=== PATIENT | male | born 1985 | race African-American/Black ===

== ENCOUNTER 2023-09-27 15:31 | Inpatient (IN) ==
--- NOTE | 2023-09-27 15:45 | Emergency Department Note ---
Impression & Plan Seizure, Non compliance w medication regimen, Suicidal ideation ED Provider Note NAME: FREDERIC [id number] MELODY AGE: 38 SEX: M : 1985 ARRIVES VIA: Ambulance INFORMANT: Patient ED PROVIDER(S): Marvin Olivas MD CHIEF COMPLAINT: Recurrent seizures, non-compliance, referred. PLAN: Disposition: Admit MEDICAL DECISION MAKING: The patient is a 38-year-old gentleman, present inmate at [facility] who presents to the emergency department via EMS for evaluation of recurrent seizure episodes which began 1 PM today and continued several times despite receiving repeat doses of Versed. The patient's symptoms occur in the setting of admittedly being noncompliant with his medications which at this time he admits has been ongoing for a month or so where he would except his medications at his facility and put them in his mouth but would not swallow them. Per the [facility] the patient had overtly refuses medication since Wednesday. The details of the patient's seizure history are unclear though the patient reports he had seizures ever since he was a child but was not on antiseizure medications until he was in the nursing home system. He is unaware of having any EEG assessment to confirm his diagnosis. Per discussion with [facility] provider who reviewed records patient's last breakthrough seizure episodes were 2021 when he was at a facility in [facility]. Per her review of records the patient had refused EEG at that time. Patient had been on Lamictal and Depakote but upon teleneurology evaluation since 2021 he was taken off of Depakote due to his history of hep C and his Lamictal was increased from 100 mg twice daily to 150 mg twice daily. The patient reports that he has been noncompliant due to ongoing depression relating unfortunate news regarding family members in terms of their health and most recently the suicide of his 16-year-old son. He reports at times he has thoughts hoping that his noncompliance with his medications will lead to his . However he reports that he has other ideas of how he would carry this out that would be "full prove" and no one would be able to stop him. On my evaluation patient is no acute distress, afebrile with stable vital signs. He is somnolent appearing but awake and alert answering questions. He appears clinically dry. There is no evidence of tongue biting. He is moving all extremities equally without focal deficits. EKG without overt acute ischemia. WBC, H/H and platelets within normal limits. Chemistry without metabolic acidosis. Electrolytes and LFTs unremarkable. CPK is marginally above upper limit of normal is nonspecific. TSH is low at 0.014 however free T4 within normal limits. Prolactin is marginally above upper limit of normal is nonspecific. UA without evidence of infection. COVID-19 RNA, SADE test negative. CT of the head was negative acute abnormalities. Due to the patient's recurrent episodes he was given initial 1 g dose of IV Keppra but due to several episodes here in the emergency department a second gram for a total of 2 g Keppra load was provided. Of note, the character of the patient's episodes Emergency Department were generalized tonic-clonic episodes but after which the patient would be awake and alert and answering questions. Patient's heart rate and blood pressure did not demonstrate any significant changes during and after these episodes. Given the recurrence of the patient's seizure-like episodes patient was for to hospital service for further management. Case was [facility] Susie Adair[facility] will [facility] the patient for [facility]. Triage Nursing notes reviewed and agree them. Prior/external medical records reviewed Vital Signs: reviewed Differential diagnosis: Epilepsy, infection, hypoglycemia, electrolyte abnormalities, cardiac sources, intracerebral event, trauma, toxicologic, neurologic, syncope, as well as other pathologies. ER treatment provided: See below. Diagnostics interpreted by me: ECG: NSR, 70 bpm, no ectopy, no overt ST elevation or depression. Cardiac Monitoring: An order for continuous cardiac monitoring was placed and demonstrated NSR, 70 bpm, no ectopy. Laboratory studies: See below Imaging studies: See below Consultation(s): Case was discussed with Susie Adair, with Susie Cruz who will evaluate the patient for admission. HPI: The patient is a 38-year-old gentleman, present inmate at [facility] who presents to the emergency department via EMS for evaluation of recurrent seizure episodes which began 1 PM today and continued several times despite receiving repeat doses of Versed. The patient's symptoms occur in the setting of admittedly being noncompliant with his medications which at this time he admits has been ongoing for a month or so where he would except his medications at his facility and put them in his mouth but would not swallow them. Per the [facility] the patient had overtly refuses medication since Wednesday. The details of the patient's seizure history are unclear though the patient reports he had seizures ever since he was a child but was not on antiseizure medications until he was in the nursing home system. He is unaware of having any EEG assessment to confirm his diagnosis. Per discussion with [facility] provider who reviewed records patient's last breakthrough seizure episodes were 2021 when he was at a facility in [facility]. Per her review of records the patient had refused EEG at that time. Patient had been on Lamictal and Depakote but upon teleneurology evaluation since 2021 he was taken off of Depakote due to his history of hep C and his Lamictal was increased from 100 mg twice daily to 150 mg twice daily. The patient reports that he has been noncompliant due to ongoing depression relating unfortunate news regarding family members in terms of their health and most recently the suicide of his 16-year-old son. He reports at times he has thoughts hoping that his noncompliance with his medications will lead to his . However he reports that he has other ideas of how he would carry this out that would be "full prove" and no one would be able to stop him. ROS: See above HPI for pertinent positives & negatives. A total of 10 systems reviewed and were otherwise negative. VITALS:See Below PHYSICAL EXAMINATION: GENERAL: Somnolent-appearing but awake and alert, in no distress HENT: Normocephalic, atraumatic. Oropharynx with dry mucous membranes and otherwise unremarkable. EYES: Normal conjunctiva. Sclera non-icteric. EOMI. No nystamgus. PEARRL. NECK: Supple. No nuchal rigidity. FROM. No JVD. RESPIRATORY: Clear to auscultation. CARDIAC: Regular rate, normal rhythm. Extremities warm and well perfused. Pulses equal. ABDOMEN: Soft, non-distended. No tenderness to palpation. No rebound or guarding. No masses. MUSCULOSKELETAL: Chest examination reveals no tenderness. The back is symmetrical on inspection without obvious abnormality. There is no CVA tenderness to palpation. No joint edema. LOWER EXTREMITIES: Calves are equal size bilaterally and non-tender. No edema. No discoloration. NEURO: No focal sensory or motor deficits noted. 5/5 strength and SILT x 4 extremities. SKIN: No rash or jaundice noted. 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 Beliefs That Will Affect Care: None Current Living Situation Comment: Half-Way Other Information That Helps Us Care for You: No Feels Safe at Home: Yes Safety Concerns: Feels Safe At This Time Assistive Devices: None Home Meds Home Medications Medication Instructions Recorded Confirmed amlodipine 2.5 mg tablet (Norvasc) 2.5 mg PO DAILY 09/27/23 09/27/23 lamotrigine 100 mg tablet 100 mg PO BID 09/27/23 09/27/23 (Lamictal) lamotrigine 25 mg tablet (Lamictal) 50 mg PO BID 09/27/23 09/27/23 mirtazapine 15 mg tablet (Remeron) 15 mg PO QPM 09/27/23 09/27/23 sertraline 50 mg tablet (Zoloft) 50 mg PO DAILY 09/27/23 09/27/23 Results & Data (ED) Vital Signs Vital Signs - 24 hr 09/27/23 15:42 09/27/23 16:00 09/27/23 16:07 Temperature 36.8 C Temperature Source Oral Pulse Rate 85 76 Pulse Rate [Apical] 72 Pulse Rhythm Respiratory Rate 22 18 Respiratory Effort / Characteristics Non-Labored Non-Labored Respiratory Depth Normal Normal Blood Pressure 116/62 Blood Pressure [Right Arm] 113/67 Blood Pressure Mean 80 Blood Pressure Mean [Right Arm] 82 Pulse Oximetry 88 L 97 Oxygen Delivery Method Room Air Room Air Sepsis Recent Fever Within 48 Hours No Sepsis New/Unexplained Change in Mental Status N/A Sepsis Action Taken by Nursing No Action Required 09/27/23 16:07 09/27/23 16:07 09/27/23 16:07 Temperature Temperature Source Pulse Rate 87 Pulse Rate [Apical] 82 Pulse Rhythm Regular Respiratory Rate 20 Respiratory Effort / Characteristics Respiratory Depth Blood Pressure Blood Pressure [Right Arm] Blood Pressure Mean Blood Pressure Mean [Right Arm] Pulse Oximetry 96 Oxygen Delivery Method Room Air Room Air Sepsis Recent Fever Within 48 Hours Sepsis New/Unexplained Change in Mental Status Sepsis Action Taken by Nursing 09/27/23 16:15 09/27/23 16:22 Temperature Temperature Source Pulse Rate Pulse Rate [Apical] Pulse Rhythm Respiratory Rate Respiratory Effort / Characteristics Respiratory Depth Blood Pressure 110/51 L Blood Pressure [Right Arm] 103/79 Blood Pressure Mean 62 Blood Pressure Mean [Right Arm] 87 Pulse Oximetry 100 Oxygen Delivery Method Non-rebreather Sepsis Recent Fever Within 48 Hours Sepsis New/Unexplained Change in Mental Status Sepsis Action Taken by Nursing Laboratory Data Attestation: I reviewed the patient's lab results. 09/27/23 15:57 09/27/23 15:57 Lab Results 09/27/23 Range/Units 15:57 WBC 7.33 (4.8-10.8) K/ul RBC 5.08 (4.70-6.10) M/uL Hgb 15.2 (14.0-18.0) g/dl Hct 43.8 (42.0-52.0) % MCV 86.2 (80.0-100.0) fL MCH 29.9 (25.0-34.0) pg MCHC 34.7 (32.0-36.0) g/dL RDW Std Deviation 36.0 L (36.4-46.3) fL RDW Coeff of Leobardo 11.4 L (11.5-14.5) % Plt Count 226 (130-400) K/uL MPV 10.6 (9.4-12.4) fL Immature Gran % (Auto) 0.3 % Neut % (Auto) 65.1 % Lymph % (Auto) 22.9 % [place] % (Auto) 10.8 % Eos % (Auto) 0.5 % Baso % (Auto) 0.4 % Neut # (Auto) 4.77 (1.40-6.50) K/uL Lymph # (Auto) 1.68 (1.20-3.40) K/uL [place] # (Auto) 0.79 H (0.11-0.59) K/uL Eos # (Auto) 0.04 (0.00-0.50) K/uL Baso # (Auto) 0.03 (0.00-0.20) K/uL Immature Gran # (Auto) 0.02 (0.01-0.20) K/uL PT 10.6 (9.0-12.0) Seconds INR 1.0 (0.9-1.1) Sodium 138 (136-145) mmol/L Potassium 4.0 (3.5-5.1) mmol/L Chloride 105 (98-107) mmol/L Carbon Dioxide 28 (21-32) mmol/L Anion Gap 5 (3-11) BUN 16 (6-23) mg/dl Creatinine 0.87 (0.6-1.4) mg/dl Est Cr Clr Drug Dosing Not Reportable Est GFR ( Amer) 128.7 ml/min Est GFR (Non-Af Amer) 111.0 ml/min BUN/Creatinine Ratio 18.4 (10-20) Glucose 115 H (70-99(Fasting)) mg/dl Calcium 9.8 (8.6-10.3) mg/dl Phosphorus 2.6 (2.5-4.9) mg/dl Magnesium 2.2 (1.7-2.4) mg/dl Total Bilirubin 0.3 (0.2-1.0) mg/dl AST 20 (13-39) U/L ALT 19 (7-52) U/L Alkaline Phosphatase 80 (34-104) U/L Total Creatine Kinase 241 H (30-223) U/L Total Protein 7.0 (6.0-8.3) gm/dl Albumin 4.5 (3.4-5.0) gm/dl Globulin 2.5 (2.5-4.0) gm/dl Albumin/Globulin Ratio 1.8 (0.9-2) TSH 0.014 L (0.300-4.500) uIu/ml Free T4 0.87 (0.61-1.60) ng/dl Prolactin 14.49 ng/ml Administered Medications Mirtazapine (Mirtazapine Tab 15 Mg Tab) 15 mg PO QPM IRISH Stop: 10/27/23 20:59 Last Admin: 09/27/23 20:49 Dose: 15 mg Documented By: ESG Discontinued Medications Sodium Chloride (Nss) 1,000 mls @ 999 mls/hr IV .Q1H1M ONE Stop: 09/27/23 16:42 Last Infusion: 09/27/23 17:08 Dose: Infused Documented By: Admin: 09/27/23 16:03 Dose: 999 mls/hr Documented By: HS Levetiracetam 1,000 mg/ Sodium (Chloride) 110 mls @ 440 mls/hr IV NOW STA Stop: 09/27/23 16:42 Last Infusion: 09/27/23 17:18 Dose: Infused Documented By: Admin: 09/27/23 16:56 Dose: 440 mls/hr Documented By: HS Levetiracetam (Levetiracetam 500 Mg/5 Ml Vial) 1,000 mg IV NOW STA Stop: 09/27/23 15:44 Last Admin: 09/27/23 16:03 Dose: 1,000 mg Documented By: HS Imaging Data Radiologist's Impression: Head CT 09/27/23 15:[address] DOSE: 625.8 mGy.cm HISTORY: seizure TECHNIQUE: Multiaxial CT images of the head were performed without the use of intravenous contrast. Automated exposure control was utilized for this study. A dose lowering technique was utilized adhering to the principles of ALARA. Comparison: None. Findings: The paranasal sinuses and mastoid air cells are clear. The calvarium and skull base are intact. The ventricles and sulci are within normal limits. There is no mass, hematoma, midline shift, or acute infarct. Impression: No acute intracranial abnormality. ACT 112: Negative or not required by law. Electronically signed by: Amaury Mccarty M.D. 09/27/2023 5:11 PM Discharge Plan Visit Data Chief Complaint: Seizure Stated Complaint: SEIZURE/STOPPED TAKING LAMICTAL WEDNESDAY ED Provider: Marvin Olivas Discharge Problem: Seizure, Non compliance w medication regimen, Suicidal ideation Patient Disposition: Admitted As Inpatient Discharge Instructions Interventions: ED Discharge Assessment Last Done: 09/27/23 18:34
[2023-09-27] MEDS: levETIRAcetam 500 MG/5 ML VIAL IV STA (16:03)
[2023-09-27] MEDS: SODIUM CHLORIDE 0.9% 1,000 ML IV ONE (16:03)
[2023-09-27 16:23] LABS: Basophils # (auto) 0.03 K/uL (0.00-0.20); Basophils % (auto) 0.4 %; Eosinophils # (auto) 0.04 K/uL (0.00-0.50); Eosinophils % (auto) 0.5 %; Hematocrit (blood only) 43.8 % (42.0-52.0); Hemoglobin 15.2 g/dl (14.0-18.0); Immature Granulocytes # (auto) 0.02 K/uL (0.01-0.20); Immature Granulocytes % (auto) 0.3 %; Lymphocytes # (auto) 1.68 K/uL (1.20-3.40); Lymphocytes % (auto) 22.9 %; Mean Corpuscular Hemoglobin 29.9 pg (25.0-34.0); Mean Corpuscular Hgb Conc 34.7 g/dL (32.0-36.0); Mean Corpuscular Volume 86.2 fL (80.0-100.0); Mean Platelet Volume 10.6 fL (9.4-12.4); Monocytes # (auto) 0.79 K/uL (0.11-0.59); Monocytes % (auto) 10.8 %; Neutrophils # (auto) 4.77 K/uL (1.40-6.50); Neutrophils % (auto) 65.1 %; Platelet Count 226 K/uL (130-400); RDW Coefficient of Variation 11.4 % (11.5-14.5); Red Blood Count 5.08 M/uL (4.70-6.10); White Blood Count 7.33 K/ul (4.8-10.8)
[2023-09-27 16:37] LABS: Alanine Aminotransferase 19 U/L (7-52); Albumin Globulin Ratio 1.8 (0.9-2); Albumin Level 4.5 gm/dl (3.4-5.0); Alkaline Phosphatase 80 U/L (34-104); Anion Gap 5 (3-11); Aspartate Aminotransferase 20 U/L (13-39); BUN Creatinine Ratio 18.4 (10-20); Bilirubin,Total 0.3 mg/dl (0.2-1.0); Blood Urea Nitrogen 16 mg/dl (6-23); Calcium 9.8 mg/dl (8.6-10.3); Carbon Dioxide 28 mmol/L (21-32); Chloride 105 mmol/L (98-107); Creatine Kinase 241 U/L (30-223); Est GFR (African American) 128.7 ml/min; Globulin 2.5 gm/dl (2.5-4.0); Glucose 115 mg/dl (70-99(Fasting)); Magnesium 2.2 mg/dl (1.7-2.4); Phosphorus 2.6 mg/dl (2.5-4.9); Sodium 138 mmol/L (136-145)
[2023-09-27 16:50] LABS: Prothrombin Time 10.6 Seconds (9.0-12.0)
[2023-09-27 16:51] LABS: Thyroid Stimulating Hormone 0.014 uIu/ml (0.300-4.500)
[2023-09-27] MEDS: levETIRAcetam IV 1,000 MG in 0.9 % SODIUM CHLORIDE 100 ML IV STA (16:56)
--- NOTE | 2023-09-27 17:13 | CT Scan Report ---
HEAD CT NONCONTRAST CT DOSE: 625.8 mGy.cm HISTORY: seizure TECHNIQUE: Multiaxial CT images of the head were performed without the use of intravenous contrast. A utomated exposure control was utilized for this study. A dose lowering technique was utilized adheri ng to the principles of ALARA. Comparison: None. Findings: The paranasal sinuses and mastoid air cells are clear. The calvarium and skull base are int act. The ventricles and sulci are within normal limits. There is no mass, hematoma, midline shift, or acute infarct. Impression: No acute intracranial abnormality. ACT 112: Negative or not required by law. Electronically signed by: Amaury Mccarty M.D. 09/27/2023 5:11 PM
[2023-09-27] MEDS ORDERED: ALUMINUM/MAGNESIUM SUSP 30 ML UDC PO PRN (17:21)
[2023-09-27] MEDS ORDERED: POLYETHYLENE (MIRALAX) 17 GM PACK PO PRN (17:21)
[2023-09-27] MEDS ORDERED: MAGNESIUM HYDROXIDE SUSP 30 ML UDC PO PRN (17:21)
[2023-09-27 17:28] LABS: T4 Free Thyroxine 0.87 ng/dl (0.61-1.60)
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
[2023-09-27] MEDS ORDERED: LORazepam 2 MG in SYRINGE 1 ML IV PRN (18:30)
[2023-09-27] MEDS: MIRTAZAPINE TAB 15 MG TAB PO SCH (20:49)
[2023-09-27 22:47] LABS: Appearance Urine Clear (Clear); Bilirubin Urine Negative (Negative); Blood Urine Negative (Negative); Color Urine Yellow; Glucose Urine UA Negative (Negative); Ketones Urine Negative (Negative); Leukocyte Esterase Urine Negative (Negative); Nitrite Urine Negative (Negative); Protein Urine Negative (Negative); Specific Gravity Urine 1.012 (1.000-1.030); Urobilinogen Urine Negative (Negative)
[2023-09-27 23:39] LABS: Amphetamines+Metham, Urine Neg (Neg); Barbiturates, Urine Neg (Neg); Benzodiazepine, Urine Pos (Neg); Cocaine, Urine Neg (Neg); MDMA (Ecstacy), Urine Neg (Neg); Marijuana, Urine Neg (Neg); Methadone, Urine Neg (Neg); Opiate, Urine Neg (Neg); Phencyclidine, Urine Neg (Neg)
[2023-09-28] MEDS: levETIRAcetam IV 500 MG in SODIUM CHLOR 0.9% MINI-B 100 ML IV SCH (04:20)
[2023-09-28 05:09] LABS: Albumin Globulin Ratio 1.6 (0.9-2); Albumin Level 4.1 gm/dl (3.4-5.0); Bilirubin,Total 0.4 mg/dl (0.2-1.0); Calcium 9.3 mg/dl (8.6-10.3); Creatinine Clr Calc Pharmacy 173.5 ml/min; Est GFR (African American) 136.8 ml/min; Globulin 2.5 gm/dl (2.5-4.0); Magnesium 2.2 mg/dl (1.7-2.4); Potassium 4.1 mmol/L (3.5-5.1); Total Protein 6.6 gm/dl (6.0-8.3)
[2023-09-28 05:29] LABS: Hematocrit (blood only) 45.7 % (42.0-52.0); Hemoglobin 15.6 g/dl (14.0-18.0); Mean Corpuscular Hgb Conc 34.1 g/dL (32.0-36.0); Mean Corpuscular Volume 87.9 fL (80.0-100.0); Mean Platelet Volume 10.4 fL (9.4-12.4); Platelet Count 199 K/uL (130-400); RDW Coefficient of Variation 11.7 % (11.5-14.5); RDW Standard Deviation 37.6 fL (36.4-46.3); White Blood Count 7.84 K/ul (4.8-10.8)
[2023-09-28] MEDS: ACETAMINOPHEN 325 MG TAB PO PRN (07:16)
--- NOTE | 2023-09-28 07:41 | XRay Report ---
XR knee LT 1 or 2V routine CLINICAL HISTORY: Left knee pain. COMPARISON: None FINDINGS: Alignment of the left knee is anatomic. There is no acute fracture. There is evidence for an ACL reconstruction. Mild to moderate medial compartment joint space narrowing with osteophytosis i s present. There is also lateral patellofemoral compartment osteophytosis. IMPRESSION: 1. No fractures within the left knee. No evidence for a joint effusion. 2. Status post left ACL reconstruction. 3. Mild to moderate left knee osteoarthritis. ACT 112: Negative or not required by law. Electronically signed by: Rajat Henriquez M.D. 09/28/2023 7:39 AM
[2023-09-28] MEDS ORDERED: levETIRAcetam IV 500 MG in SODIUM CHLOR 0.9% MINI-B 100 ML IV SCH (08:00)
[2023-09-28] MEDS: ONDANSETRON INJ 2 MG/ML 2 ML VIAL IV PRN (08:18)
--- NOTE | 2023-09-28 08:40 | Neurology Consultation ---
Date of Consultation September 28, 2023 Assessment & Plan (1) Seizure: Would avoid Keppra as this medication has potential to cause behavioral side effects, particularly agitation Since has not been taking Lamictal on a regular basis, it may be reasonable to start an alternative agent that we can titrate up more quickly since he is having recurrent seizures Recommend start Zonisamide as follows: week 1-2: 100mg BID week 3-4: 100mg AM and 150mg PM week 5 and onward : 150mg BID Patient should f/u with OP neurology Appears at neurologic baseline, can consider discharge if has no recurrent seizures today Please reach out with questions or concerns Telehealth Consultation Telehealth Information Telehealth Information: I performed this visit using a real-time telehealth connection between my location and the patients location ([facility]). After connecting through interactive tele-video, patient was identified by name and date of and/or wristband check.Patient (or authorized healthcare digital media representative) was informed that this was a telemedicine visit and it was being conducted confidentially over secure lines. My office door was closed and no one else was present in the room with me.Patient (or authorized healthcare digital media representative) provided consent to proceed with the visit, expressed an understanding of privacy and security of the telemedicine visit, and gave permission to have a hospital digital media representative in the room in order to assist with the visit and to conduct portions of the visit, as needed. I informed the patient (or authorized healthcare digital media representative) that I reviewed their record and presented the opportunity for them to ask any questions regarding the visit today. The patient agreed to participate. History of Present Illness Reason for Consultation: Seizure with medication non-compliance Attending Physician: Majo Mcdaniel MD History of Present Illness 38-year-old male, present inmate at [facility] who presents to the emergency department via EMS for evaluation of recurrent seizure episodes which began 1 PM 09/26 with several episodes of seizure despite being given multiple doses of versed. He is reportedly noncompliant with his meds, has been pocketing pills for the last month. Per ED, patient has been refusing all meds since Wednesday in the [facility]. Supposed to be on Lamictal 150mg BID. Per records, last breakthrough seizure was 2021. Had previously been on VPA which was stopped due to hx of HepC. Patient reports feelings of depression causing him to refuse meds; 16 y/o son recently committed suicide. Patient states prior to seizure he gets aura of onion smell then passes out and wakes up on the floor sometime later. Home Medications Medication Instructions Recorded Confirmed Type amlodipine 2.5 mg tablet (Norvasc) 2.5 mg PO DAILY 09/27/23 09/27/23 History lamotrigine 100 mg tablet 100 mg PO BID 09/27/23 09/27/23 History (Lamictal) lamotrigine 25 mg tablet (Lamictal) 50 mg PO BID 09/27/23 09/27/23 History mirtazapine 15 mg tablet (Remeron) 15 mg PO QPM 09/27/23 09/27/23 History sertraline 50 mg tablet (Zoloft) 50 mg PO DAILY 09/27/23 09/27/23 History Patient History Medical History HTN (hypertension) Depression Suicidal ideation Non compliance w medication regimen Seizure Surgical History No pertinent past surgical history Family History Other Depression Social History Smoking Status: Current every day smoker Tobacco Type: E-cigarettes / Vaping Second Hand Exposure: No; Do You Dip or Chew Tobacco: No; Tobacco Cessation Education Requested by Patient: No Hx Alcohol Use: No Hx Substance Use: No Preferred Language: Hungarian Communication Ability: Effective Deputy Fire Chief Required: No Beliefs That Will Affect Care: None Current Living Situation Comment: Shelter Other Information That Helps Us Care for You: No Feels Safe at Home: Yes Safety Concerns: Feels Safe At This Time Assistive Devices: None Review of Systems admits to tingling in fingertips, not toes no weakness, no changes in vision or hearing, no changes in speech No CP or SOB Physical Exam Mental Status: AOx3, no aphasia, no dysarthria CN: EOMI, face symmetric, tongue midline Motor: antigravity power present in all 4 Sensory: intact to light touch Reflexes: cannot assess via telemedicine Coordination: normal Gait: deferred Results & Data Vital Signs (Past 12 Hours) Vital Signs Temp Pulse Resp BP Pulse Ox O2 Del Method 09/28/23 07:00 89 12 96/62 L 97 Room Air 09/28/23 07:00 36.5 C 09/28/23 03:00 78 18 94 09/28/23 03:00 100/71 09/28/23 00:00 63 09/27/23 23:01 37.1 C 63 14 98/53 L 94 Room Air 09/27/23 21:00 126/79 09/27/23 21:00 [address] head 09/27/23: no acute intracranial abnormalities
[2023-09-28] MEDS: SERTRALINE HCL 50 MG TABLET PO SCH (09:41)
[2023-09-28] MEDS: ENOXAPARIN INJ 40 MG/0.4 ML SYR SQ SCH (09:41)
[2023-09-28] MEDS: amLODIPine BESYLATE 5 MG TAB PO SCH (09:41)
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
[2023-09-28] MEDS: GADOBUTROL 65ML VIAL IV ONE (12:45)
--- NOTE | 2023-09-28 12:45 | Electrocardiogram Report ---
Test Reason : Blood Pressure : / mmHG Vent. Rate : 070 BPM Atrial Rate : 070 BPM P-R Int : 168 ms QRS Dur : 094 ms QT Int : 376 ms P-R-T Axes : 057 089 015 degrees QTc Int : 406 ms Normal sinus rhythm Possible Left atrial enlargement ST elevation, consider early repolarization, pericarditis, or injury No previous ECGs available Confirmed by Yifan Mason ([id number]) on 09/28/2023 12:45:16 PM Referred By: Gwen SCI Confirmed By:Yifan Mason
[2023-09-28] MEDS: ZONISAMIDE 100 MG CAPSULE PO SCH (13:10)
--- NOTE | 2023-09-28 14:42 | Magnetic Resonance Report ---
MRI OF THE BRAIN WITHOUT AND WITH IV CONTRAST SEIZURE PROTOCOL CLINICAL HISTORY: seizures, possible psychogenic COMPARISON STUDY: Head CT September 27, 2023. TECHNIQUE: Utilizing a 1.5 Marlin magnet and dedicated coil, multiplanar, multiecho imaging of the br ain was performed pre and postcontrast administration. IV administration of 10.5 mL of Gadavist cont rast was uneventful. Thin cut coronal T2 imaging was performed according to seizure protocol. FINDINGS: This study is mildly compromised by motion artifact although remains diagnostic. There are no foci of restricted diffusion to suggest acute infarct. No acute intracranial hemorrhage, midline s hift or mass effect is present. Ventricular system is normal. Basal cisterns are patent. Flow-voids f or the major intracranial vessels are present. There is no intracranial mass or pathologic enhancemen t. No parenchymal signal abnormality is identified. There is no convincing MR evidence for mesial tem poral sclerosis. Calvarial signal is normal. There is no evidence for sinusitis. No orbital abnormali ty is present. There is no mastoid fluid. IMPRESSION: 1. Unremarkable MRI of the brain. 2. Study mildly compromised by motion artifact. ACT 112: Negative or not required by law. Electronically signed by: Rajat Henriquez M.D. 09/28/2023 2:41 PM
--- NOTE | 2023-09-28 15:54 | Electroencephalogram ---
EEG Procedure Note Date of Service September 28, 2023 Start / End Times Start Time: 09:32 End Time: 09:[address] Attila Strickland History A 38 year old male with seizure. EEG performed for evaluation of epileptiform acitvity. Home Medication List Medication Instructions Recorded Confirmed Type amlodipine 2.5 mg tablet (Norvasc) 2.5 mg PO DAILY 09/27/23 09/27/23 History lamotrigine 100 mg tablet 100 mg PO BID 09/27/23 09/27/23 History (Lamictal) lamotrigine 25 mg tablet (Lamictal) 50 mg PO BID 09/27/23 09/27/23 History mirtazapine 15 mg tablet (Remeron) 15 mg PO QPM 09/27/23 09/27/23 History sertraline 50 mg tablet (Zoloft) 50 mg PO DAILY 09/27/23 09/27/23 History Inpatient Medication List Acetaminophen (Acetaminophen 325 Mg Tab) 650 mg PO Q4H PRN PRN Reason: Pain or Fever Stop: 10/27/23 17:20 Last Admin: 09/28/23 07:16 Dose: 650 mg Documented By: QUIN Amlodipine Besylate (Amlodipine Besylate 5 Mg Tab) 2.5 mg PO DAILY [facility] Stop: 10/28/23 08:59 Last Admin: 09/28/23 09:41 Dose: 2.5 mg Documented By: QUIN Enoxaparin Sodium (Enoxaparin Inj 40 Mg/0.4 Ml Syr) 40 mg SQ QAM [facility] Stop: 10/28/23 08:59 Last Admin: 09/28/23 09:41 Dose: 40 mg Documented By: QUIN Mirtazapine (Mirtazapine Tab 15 Mg Tab) 15 mg PO QPM [place] Stop: 10/27/23 20:59 Last Admin: 09/27/23 20:49 Dose: 15 mg Documented By: NI Ondansetron HCl (Ondansetron Inj 2 Mg/Ml 2 Ml Vial) 4 mg IV Q6H PRN PRN Reason: Nausea Stop: 10/27/23 17:20 Last Admin: 09/28/23 08:18 Dose: 4 mg Documented By: QUIN Sertraline HCl (Sertraline Hcl 50 Mg Tablet) 50 mg PO DAILY [facility] Stop: 10/28/23 08:59 Last Admin: 09/28/23 09:41 Dose: 50 mg Documented By: QUIN Zonisamide (Zonisamide 100 Mg Capsule) 100 mg PO BID [facility] Stop: 10/28/23 11:34 Last Admin: 09/28/23 13:10 Dose: 100 mg Documented By: QUIN Discontinued Medications Gadobutrol (Gadobutrol 65ml Vial) 10.5 ml IV ONCE ONE Stop: 09/28/23 13:10 Last Admin: 09/28/23 12:45 Dose: 10.5 ml Documented By: EMILY Sodium Chloride (Nss) 1,000 mls @ 999 mls/hr IV .Q1H1M ONE Stop: 09/27/23 16:42 Last Infusion: 09/27/23 17:08 Dose: Infused Documented By: Admin: 09/27/23 16:03 Dose: 999 mls/hr Documented By: ELVIS Levetiracetam 1,000 mg/ Sodium (Chloride) 110 mls @ 440 mls/hr IV NOW STA Stop: 09/27/23 16:42 Last Infusion: 09/27/23 17:18 Dose: Infused Documented By: Admin: 09/27/23 16:56 Dose: 440 mls/hr Documented By: ELVIS Levetiracetam 500 mg/ Sodium (Chloride) 105 mls @ 420 mls/hr IV Q12H [place] Stop: 10/28/23 03:59 Last Infusion: 09/28/23 06:05 Dose: Infused Documented By: Admin: 09/28/23 04:20 Dose: 420 mls/hr Documented By: ESTeodora Levetiracetam (Levetiracetam 500 Mg/5 Ml Vial) 1,000 mg IV NOW STA Stop: 09/27/23 15:44 Last Admin: 09/27/23 16:03 Dose: 1,000 mg Documented By: ELVIS Description This is a 21 electrode EEG with a single channel dedicated to limited EKG. The electrodes were placed in accordance with the International 10-20 system. REPORT: At the onset of the EEG, the patient is awake. The background activity consist of 11-12 Hz, persistent, posteriorly dominant, moderate amplitude, symmetric and rhythmic activity that is reactive to eye opening with intermixed 10-20 uV beta activity.Anteriorly, it consist of a mixture of low voltage indeterminate activity and 15-25 Hz, persistent, low amplitude, symmetric and rhythmic activity. Stepwise intermittent photic stimulation (1-21 Hz) does not induce any abnormalities. Hyperventilation is not performed. Drowsiness is characterized by low amplitude mixed frequency activity, roving eye movements, and decreased eye blinking and muscle artifact. Stage II sleep is characterized by sleep spindles, vertex waves, and K complexes. Interpretation IMPRESSION: This is a normal awake and drowsy routine EEG. Excessive beta activity is a normal variant and can be seen as a medication effect, ie benzodiazepines and barbiturates. There is no evidence of epileptiform activity.
[2023-09-29 06:53] LABS: Basophils # (auto) 0.03 K/uL (0.00-0.20); Basophils % (auto) 0.4 %; Eosinophils % (auto) 1.3 %; Hematocrit (blood only) 46.1 % (42.0-52.0); Hemoglobin 16.3 g/dl (14.0-18.0); Immature Granulocytes # (auto) 0.02 K/uL (0.01-0.20); Immature Granulocytes % (auto) 0.3 %; Lymphocytes # (auto) 2.12 K/uL (1.20-3.40); Lymphocytes % (auto) 26.8 %; Mean Corpuscular Hemoglobin 30.5 pg (25.0-34.0); Mean Corpuscular Hgb Conc 35.4 g/dL (32.0-36.0); Mean Corpuscular Volume 86.3 fL (80.0-100.0); Mean Platelet Volume 10.1 fL (9.4-12.4); Monocytes # (auto) 0.84 K/uL (0.11-0.59); Monocytes % (auto) 10.6 %; Neutrophils % (auto) 60.6 %; Platelet Count 210 K/uL (130-400); RDW Coefficient of Variation 11.6 % (11.5-14.5); RDW Standard Deviation 36.4 fL (36.4-46.3); Red Blood Count 5.34 M/uL (4.70-6.10); White Blood Count 7.91 K/ul (4.8-10.8)
[2023-09-29 07:22] LABS: Albumin Globulin Ratio 1.6 (0.9-2); Albumin Level 4.2 gm/dl (3.4-5.0); BUN Creatinine Ratio 16.7 (10-20); Bilirubin,Total 0.4 mg/dl (0.2-1.0); Calcium 9.6 mg/dl (8.6-10.3); Creatinine Clr Calc Pharmacy 154.9 ml/min; Est GFR (African American) 130.6 ml/min; Est GFR (Non-African American) 112.6 ml/min; Globulin 2.6 gm/dl (2.5-4.0); Magnesium 2.2 mg/dl (1.7-2.4); Phosphorus 3.3 mg/dl (2.5-4.9); Potassium 4.3 mmol/L (3.5-5.1); Total Protein 6.8 gm/dl (6.0-8.3)
--- NOTE | 2023-09-29 10:40 | Hospitalist Progress Note ---
Date of Service September 29, 2023 Assessment & Plan (1) Seizure: (2) Non compliance w medication regimen: (3) Suicidal ideation: (4) Depression: (5) HTN (hypertension): Plan: Pt is a 38yo male prisoner with PMHx significant for seizure disorder, depression, HTN admitted with recurrent seizures in the setting of medication noncompliance at the halfway. 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 Prescribed Lamictal 150 mg twice daily; has been pill pocketing and spitting out over past month; noncompliant Loaded with Keppra 2 g IV in ED; continue Keppra 500 mg IV twice daily starting 09/27 Brain MRI ordered- unremarkable EEG ordered- no indication of seizures Seizure precautions and bed guards Neurology consult placed, appreciate recs -discontinue Keppra -start zonisamide 100mg BID -recommended the following medication regimen: "week 1-2: 100mg BID, week 3- 4: 100mg AM and 150mg PM, week 5 and onward : 150mg BID -Patient should f/u with OP neurology - can consider discharge if has no recurrent seizures Suicidal Ideation: Depression: Chronic Takes Zoloft and Remeron; continue Recently stopped taking his antiseizure medication which he correlates to suicidal ideation Reportedly has stated that if he stops taking his seizure medication he will eventually have enough seizures and Significant life family stressors as outlined above Psychiatry aware and consulted One-on-one observation per protocol for suicidal ideation Safe tray Knee pain: Acute Left knee painful per patient Knee x-ray - negative Tylenol as needed for pain Chest pain developed 09/28 AM - squeezing in nature - radiates to R arm no shortness of breath, dizziness, lightheadedness, nausea, or WEBSTER ECG, troponin ordered and will further discuss w/ cardiology HTN: chronic Takes Norvasc;continue [phone] Code Status: Full Code VTE Prophylaxis: Lovenox SQ Admission and Anticipated Discharge Date Admission Date: September 27, 2023 Subjective Pt seen in follow up of seizure, inmate [facility] Seen by neurology yesterday and medication changed Psych consulted - pending eval This AM pt is complaining of squeezing chest pain - ongoing radiating to right arm- especially when moving R arm, (says he did not try to move L arm), denies any WEBSTER, dizziness, lightheadedness, shortness of breath No fever, chills, abd. pain, nausea ECG obtained this AM, ordered stat troponin - will further discuss w/ cardiology Review of Systems Review of Systems: All systems reviewed & are unremarkable except as noted in Subjective Physical Exam Physical Exam: General: WD/WN M in NAD Respiratory: CTAB Cardiovascular: RRR, no murmur, no edema Vessels: no JVD or carotid bruit Chest: normal inspection of chest Abdomen: normal bowel sounds, soft, nontender Musculoskeletal: moves extremities Skin: no rashes, warm and dry, multiple tattoos Neurologic: awake, alert, answers simple questions appropriately, grossly moving all extremities. Results & Data Results & Data Vital Signs (Past 12 Hours) Vital Signs Temp Pulse Pulse Resp BP Pulse Ox O2 Del Method 09/29/23 08:12 68 110/68 09/29/23 07:11 93 Room Air 09/29/23 07:00 60 09/29/23 06:58 36.4 C L 61 16 102/57 L 98 Nasal Cannula 09/29/23 03:44 36.5 C 61 18 121/72 98 Nasal Cannula 09/29/23 00:00 67 09/28/23 23:56 36.4 C L 62 18 100/59 L 97 Nasal Cannula 09/28/23 23:35 74 O2 Flow Rate 09/29/23 08:12 09/29/23 07:11 09/29/23 07:00 09/29/23 06:58 1 09/29/23 03:44 2 09/29/23 00:00 09/28/23 23:56 2 09/28/23 23:35 Laboratory Results 09/29/23 09/29/23 Range/Units 09:27 06:34 WBC 7.91 (4.8-10.8) K/ul RBC 5.34 (4.70-6.10) M/uL Hgb 16.3 (14.0-18.0) g/dl Hct 46.1 (42.0-52.0) % MCV 86.3 (80.0-100.0) fL MCH 30.5 (25.0-34.0) pg MCHC 35.4 (32.0-36.0) g/dL RDW Std Deviation 36.4 (36.4-46.3) fL RDW Coeff of Leobardo 11.6 (11.5-14.5) % Plt Count 210 (130-400) K/uL MPV 10.1 (9.4-12.4) fL Immature Gran % (Auto) 0.3 % Neut % (Auto) 60.6 % Lymph % (Auto) 26.8 % [place] % (Auto) 10.6 % Eos % (Auto) 1.3 % Baso % (Auto) 0.4 % Neut # (Auto) 4.80 (1.40-6.50) K/uL Lymph # (Auto) 2.12 (1.20-3.40) K/uL [place] # (Auto) 0.84 H (0.11-0.59) K/uL Eos # (Auto) 0.10 (0.00-0.50) K/uL Baso # (Auto) 0.03 (0.00-0.20) K/uL Immature Gran # (Auto) 0.02 (0.01-0.20) K/uL Sodium 138 (136-145) mmol/L Potassium 4.3 (3.5-5.1) mmol/L Chloride 107 (98-107) mmol/L Carbon Dioxide 27 (21-32) mmol/L Anion Gap 4 (3-11) BUN 14 (6-23) mg/dl Creatinine 0.84 (0.6-1.4) mg/dl Est Cr Clr Drug Dosing 154.9 ml/min Est GFR ( Amer) 130.6 ml/min Est GFR (Non-Af Amer) 112.6 ml/min BUN/Creatinine Ratio 16.7 (10-20) Glucose 97 (70-99(Fasting)) mg/dl Calcium 9.6 (8.6-10.3) mg/dl Phosphorus 3.3 (2.5-4.9) mg/dl Magnesium 2.2 (1.7-2.4) mg/dl Total Bilirubin 0.4 (0.2-1.0) mg/dl AST 18 (13-39) U/L ALT 20 (7-52) U/L Alkaline Phosphatase 78 (34-104) U/L Troponin I High Sens 2.6 (0-20) pg/ml Total Protein 6.8 (6.0-8.3) gm/dl Albumin 4.2 (3.4-5.0) gm/dl Globulin 2.6 (2.5-4.0) gm/dl Albumin/Globulin Ratio 1.6 (0.9-2) Medications Administered Current Inpatient Medications Acetaminophen (Acetaminophen 325 Mg Tab) 650 mg PO Q4H PRN PRN Reason: Pain or Fever Stop: 10/27/23 17:20 Last Admin: 09/28/23 07:16 Dose: 650 mg Al Hydrox/Mg Hydrox/Simethicone (Aluminum/Magnesium Susp 30 Ml Udc) 15 ml PO Q4H PRN PRN Reason: Dyspepsia Stop: 10/27/23 17:20 Amlodipine Besylate (Amlodipine Besylate 5 Mg Tab) 2.5 mg PO DAILY [facility] Stop: 10/28/23 08:59 Last Admin: 09/29/23 08:15 Dose: 2.5 mg Enoxaparin Sodium (Enoxaparin Inj 40 Mg/0.4 Ml Syr) 40 mg SQ QAM [facility] Stop: 10/28/23 08:59 Last Admin: 09/29/23 08:16 Dose: 40 mg Lorazepam 2 mg/ Syringe 2 mls @ 2 mls/min IV Q6H PRN PRN Reason: seizure Stop: 10/27/23 18:29 Magnesium Hydroxide (Magnesium Hydroxide Susp 30 Ml Udc) 30 ml PO Q12H PRN PRN Reason: Constipation Stop: 10/27/23 17:20 Mirtazapine (Mirtazapine Tab 15 Mg Tab) 15 mg PO QPM [facility] Stop: 10/27/23 20:59 Last Admin: 09/28/23 20:32 Dose: 15 mg Ondansetron HCl (Ondansetron Inj 2 Mg/Ml 2 Ml Vial) 4 mg IV Q6H PRN PRN Reason: Nausea Stop: 10/27/23 17:20 Last Admin: 09/28/23 08:18 Dose: 4 mg Polyethylene Glycol (Polyethylene (Miralax) 17 Gm Pack) 17 gm PO DAILY PRN PRN Reason: Constipation Stop: 10/27/23 17:20 Sertraline HCl (Sertraline Hcl 50 Mg Tablet) 50 mg PO DAILY [facility] Stop: 10/28/23 08:59 Last Admin: 09/29/23 08:16 Dose: 50 mg Zonisamide (Zonisamide 100 Mg Capsule) 100 mg PO BID [facility] Stop: 10/28/23 11:34 Last Admin: 09/29/23 08:15 Dose: 100 mg
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
[2023-09-29] MEDS: SODIUM CHLORIDE 0.9% 1,000 ML IV SCH (13:58)
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
--- NOTE | 2023-09-29 16:25 | Electrocardiogram Report ---
Test Reason : Blood Pressure : / mmHG Vent. Rate : 065 BPM Atrial Rate : 065 BPM P-R Int : 164 ms QRS Dur : 088 ms QT Int : 394 ms P-R-T Axes : 063 095 020 degrees QTc Int : 409 ms Poor data quality, interpretation may be adversely affected Normal sinus rhythm Rightward axis Nonspecific T wave abnormality Abnormal ECG When compared with ECG of 27-SEP-2023 16:54, No significant change was found Confirmed by Yifan Mason ([id number]) on 09/29/2023 4:25:31 PM Referred By: Gwen SCI Confirmed By:Yifan Mason
[2023-09-29] MEDS: LITHIUM CARBONATE 300 MG TAB PO SCH (20:16)
[2023-09-30 07:24] LABS: Hematocrit (blood only) 45.5 % (42.0-52.0); Hemoglobin 15.5 g/dl (14.0-18.0); Mean Corpuscular Hemoglobin 29.6 pg (25.0-34.0); Mean Corpuscular Hgb Conc 34.1 g/dL (32.0-36.0); Mean Platelet Volume 10.4 fL (9.4-12.4); Platelet Count 201 K/uL (130-400); RDW Coefficient of Variation 11.6 % (11.5-14.5); RDW Standard Deviation 37.2 fL (36.4-46.3); Red Blood Count 5.23 M/uL (4.70-6.10); White Blood Count 7.21 K/ul (4.8-10.8)
[2023-09-30 07:26] LABS: Calcium 9.4 mg/dl (8.6-10.3); Magnesium 2.2 mg/dl (1.7-2.4); Potassium 4.3 mmol/L (3.5-5.1)
[2023-09-30 07:32] LABS: BUN Creatinine Ratio 15.6 (10-20); Creatinine Clr Calc Pharmacy 168.9 ml/min; Est GFR (African American) 135.3 ml/min; Est GFR (Non-African American) 116.7 ml/min; Phosphorus 3.1 mg/dl (2.5-4.9)
--- NOTE | 2023-09-30 07:34 | Hospitalist Progress Note ---
Date of Service September 30, 2023 Assessment & Plan (1) Seizure: (2) Non compliance w medication regimen: (3) Suicidal ideation: (4) Depression: (5) HTN (hypertension): Plan: Pt is a 38yo male prisoner with PMHx significant for seizure disorder, depression, HTN admitted with recurrent seizures in the setting of medication noncompliance at the skilled nursing. 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 Prescribed Lamictal 150 mg twice daily; has been pill pocketing and spitting out over past month; noncompliant Loaded with Keppra 2 g IV in ED; continue Keppra 500 mg IV twice daily starting 09/27 Brain MRI ordered- unremarkable EEG ordered- no indication of seizures Seizure precautions and bed guards Neurology consulted -discontinue Keppra -start zonisamide 100mg BID -recommended the following medication regimen: "week 1-2: 100mg BID, week 3- 4: 100mg AM and 150mg PM, week 5 and onward : 150mg BID -Patient should f/u with OP neurology Suicidal Ideation: Depression: Chronic Takes Zoloft and Remeron Recently stopped taking his antiseizure medication which he correlates to suicidal ideation Reportedly has stated that if he stops taking his seizure medication he will eventually have enough seizures and Significant life family stressors as outlined above One-on-one observation per protocol for suicidal ideation Safe tray Psychiatry consulted - started pt on lithium and olanzapine - pt is feeling better. TSH low - follow up in 10-15 days. Discharge recommendations 1. Continue lithium 300 mg PO at bedtime 2. Continue olanzapine 10 mg PO at bedtime 3. Routine labs in 10 to 15 days 4. Avoid NSAIDs. Avoid hydrochlorothiazide. Avoid dehydration Knee pain: Acute Left knee painful per patient Knee x-ray - negative Tylenol as needed for pain Chest pain developed 09/28 AM - squeezing in nature - radiates to R arm no shortness of breath, dizziness, lightheadedness, nausea, or WEBSTER ECG, troponin, echo and discussed w/ cardiology troponin x2 negative Echo -normal LV wall thickness. LV systolic function is normal. LVEF 60 to 65%. No regional wall motion abnormalities noted. There is no significant valvular disease. No further cardiac tests needed CP resolved HTN: chronic Takes Norvasc;continue PCP: [facility] [phone] ext [phone] Code Status: Full Code VTE Prophylaxis: Lovenox SQ Admission and Anticipated Discharge Date Admission Date: September 27, 2023 Subjective Pt seen in follow up of seizure, inmate from [facility] Seen by neurology initially and medication changed Psych consulted as well and pt started on lithium and olanzapine Discussed w/ psychiatry this AM - pt can be discharged - will need follow up labs Yesterday pt complained of squeezing chest pain - was seen by cardiology - troponin, ecg, echo obtained. discussed w/ cardiology this AM - no other tests needed Currently pt feels better, denies any more chest pain. Denies fever, chills, abd. pain, n/v, webster. Discussed w/ HEMALATHA [facility] physician - plan to discharge the pt Review of Systems Review of Systems: All systems reviewed & are unremarkable except as noted in Subjective Physical Exam Physical Exam: General: WD/WN M in NAD Respiratory: CTAB Cardiovascular: RRR, no murmur, no edema Vessels: no JVD or carotid bruit Chest: normal inspection of chest Abdomen: normal bowel sounds, soft, nontender Musculoskeletal: moves extremities Skin: no rashes, warm and dry, multiple tattoos Neurologic: awake, alert, answers simple questions appropriately, grossly moving all extremities. Results & Data Results & Data Vital Signs (Past 12 Hours) Vital Signs Temp Pulse Pulse Resp BP Pulse Ox O2 Del Method 09/30/23 07:04 36.8 C 52 L 18 117/76 98 Room Air 09/30/23 03:12 36.4 C L 54 L 17 102/69 96 Room Air 09/29/23 23:11 36.7 C 58 L 18 110/69 96 Room Air 09/29/23 21:58 62 09/29/23 20:25 Room Air Laboratory Results 09/30/23 09/29/23 09/29/23 Range/Units 06:39 14:25 09:27 WBC 7.21 (4.8-10.8) K/ul RBC 5.23 (4.70-6.10) M/uL Hgb 15.5 (14.0-18.0) g/dl Hct 45.5 (42.0-52.0) % MCV 87.0 (80.0-100.0) fL MCH 29.6 (25.0-34.0) pg MCHC 34.1 (32.0-36.0) g/dL RDW Std Deviation 37.2 (36.4-46.3) fL RDW Coeff of Leobardo 11.6 (11.5-14.5) % Plt Count 201 (130-400) K/uL MPV 10.4 (9.4-12.4) fL Sodium 139 (136-145) mmol/L Potassium 4.3 (3.5-5.1) mmol/L Chloride 112 H (98-107) mmol/L Carbon Dioxide 22 (21-32) mmol/L Anion Gap 5 (3-11) BUN 12 (6-23) mg/dl Creatinine 0.77 (0.6-1.4) mg/dl Est Cr Clr Drug Dosing 168.9 ml/min Est GFR ( Amer) 135.3 ml/min Est GFR (Non-Af Amer) 116.7 ml/min BUN/Creatinine Ratio 15.6 (10-20) Glucose 92 (70-99(Fasting)) mg/dl Calcium 9.4 (8.6-10.3) mg/dl Phosphorus 3.1 (2.5-4.9) mg/dl Magnesium 2.2 (1.7-2.4) mg/dl Troponin I High Sens 3.1 2.6 (0-20) pg/ml [place] Pending Medications Administered Current Inpatient Medications Acetaminophen (Acetaminophen 325 Mg Tab) 650 mg PO Q4H PRN PRN Reason: Pain or Fever Stop: 10/27/23 17:20 Last Admin: 09/28/23 07:16 Dose: 650 mg Al Hydrox/Mg Hydrox/Simethicone (Aluminum/Magnesium Susp 30 Ml Udc) 15 ml PO Q4H PRN PRN Reason: Dyspepsia Stop: 10/27/23 17:20 Amlodipine Besylate (Amlodipine Besylate 5 Mg Tab) 2.5 mg PO DAILY [facility] Stop: 10/28/23 08:59 Last Admin: 09/29/23 08:15 Dose: 2.5 mg Enoxaparin Sodium (Enoxaparin Inj 40 Mg/0.4 Ml Syr) 40 mg SQ QAM IRISH Stop: 10/28/23 08:59 Last Admin: 09/29/23 08:16 Dose: 40 mg Lorazepam 2 mg/ Syringe 2 mls @ 2 mls/min IV Q6H PRN PRN Reason: seizure Stop: 10/27/23 18:29 Sodium Chloride (Nss) 1,000 mls @ 125 mls/hr IV .Q8H IRISH Stop: 10/29/23 13:44 Last Admin: 09/30/23 04:09 Dose: 125 mls/hr [place] Carbonate ([place] Carbonate 300 Mg Tab) 300 mg PO HS IRISH Stop: 10/29/23 20:59 Last Admin: 09/29/23 20:16 Dose: 300 mg Magnesium Hydroxide (Magnesium Hydroxide Susp 30 Ml Udc) 30 ml PO Q12H PRN PRN Reason: Constipation Stop: 10/27/23 17:20 Olanzapine (Olanzapine Zydis 10 Mg Orally Dis. Tab) [address] [facility] Stop: 10/29/23 20:59 Last Admin: 09/29/23 20:16 Dose: 10 mg Ondansetron HCl (Ondansetron Inj 2 Mg/Ml 2 Ml Vial) 4 mg IV Q6H PRN PRN Reason: Nausea Stop: 10/27/23 17:20 Last Admin: 09/28/23 08:18 Dose: 4 mg Polyethylene Glycol (Polyethylene (Miralax) 17 Gm Pack) 17 gm PO DAILY PRN PRN Reason: Constipation Stop: 10/27/23 17:20 Zonisamide (Zonisamide 100 Mg Capsule) 100 mg PO BID [facility] Stop: 10/28/23 11:34 Last Admin: 09/29/23 20:15 Dose: 100 mg
--- NOTE | 2023-09-30 07:56 | Psychiatric Progress Note ---
Date of Service September 30, 2023 Impression / Recommendations Impression Mr. Washington is a 38-year-old male with bipolar disorder type I and medical history of seizures. The current mood episode is depressed without psychosis and is accompany by suicidal ideations. Mr. Washington responded well to discontinuation of Zoloft and Remeron and first doses of lithium and olanzapine. According to the most recent lab results his TSH was below normal limits. Hypothyroidism can cause some neuropsychiatric symptoms but is unlikely to explain ligia like symptoms experienced in childhood. That being said, lithium may help stabilize the thyroid function. Mr. Washington will need blood m onitoring (lithium levels, kidney function, and thyroid) routinely. This can be done by the custodial system. It is too early to do the labs now. The patient needs to avoid regular use of NSAIDs and hydrochlorothiazide while on lithium. Overall, I spent a total of 25 minutes with this case, including review of chart, direct evaluation of the patient,counseling the patient, coordination with nursing, coordination of care with hospitalist service, risk assessment, and documentation. (1) Suicidal ideation: (2) Bipolar 1 disorder, depressed, severe: Plan 09/30/23: 1. Continue lithium 300 mg PO at bedtime 2. Continue olanzapine 10 mg PO at bedtime 3. Routine labs in 10 to 15 days 4. Avoid NSAIDs. Avoid hydrochlorothiazide. Avoid dehydration 09/29/23: -Agree with Neuro RE: Avoid Keppra as this medication has potential to cause behavioral side effects. -Start [place] 300mg PO HS -Start Olanzapine 10g PO HS -Discontinue Zoloft -Discontinue Remeron -Psychiatry will follow up tomorrow Interval History Chief Complaint "I was making jokes last night. It felt really good. My thought are better. I am not so much in my head." Subjective Subjective Patient was seen & assessed and interval progress reviewed with treatment team. The patient received lithium 300 mg plus olanzapine 10 mg p.o. last night. This morning he appears rested, in good spirits. Patient stated that he had a good night of sleep. He reported that last night after taking the medications he felt quite relaxed, not irritable, and continues to feel this way today. He denied side effects from the medications and is willing to continue as prescribed. The patient denied suicidal ideation, plan or intent. He also denied homicidal ideation. The thoughts of harming his cellie have dissipated. On exam there is no evidence of symptoms consistent with ligia or psychosis. Physical Exam Psychiatric Orientation: alert and oriented x 3 Apperance: appropriately dressed Eye Contact: good eye contact Speech: normal rate/rhythm/volume of speech Affect: euthymic affect Mood: no depressed mood, no anxious mood and no irritable mood Thought Process: goal directed thought process and clear/coherent thought process Thought Content: not paranoid, no delusions and no hopelessness Suicidal Thoughts: denies suicidal thoughts Homicidal Thoughts: denies homicidal thoughts Hallucinations: no auditory hallucinations Estimated Intelligence: average estimated intelligence Insight: good insight Judgment: good judgement Vital Signs (Past 24 Hours) Last Vital Signs Temp 36.8 C 09/30/23 07:04 Pulse 52 L 09/30/23 07:04 Resp 18 09/30/23 07:04 BP 117/76 09/30/23 07:04 Pulse Ox 98 09/30/23 07:04 O2 Del Method Room Air 09/30/23 07:04 O2 Flow Rate 1 09/29/23 06:58 Results & Data ([facility]) Laboratory Results Laboratory Results - last 24 hr 09/29/23 09/29/23 09/30/23 09:27 14:25 06:39 WBC 7.21 RBC 5.23 Hgb 15.5 Hct 45.5 MCV 87.0 MCH 29.6 MCHC 34.1 RDW Std Deviation 37.2 RDW Coeff of Leobardo 11.6 Plt Count 201 MPV 10.4 Sodium 139 Potassium 4.3 Chloride 112 H Carbon Dioxide 22 Anion Gap 5 BUN 12 Creatinine 0.77 Est Cr Clr Drug Dosing 168.9 Est GFR ( Amer) 135.3 Est GFR (Non-Af Amer) 116.7 BUN/Creatinine Ratio 15.6 Glucose 92 Calcium 9.4 Phosphorus 3.1 Magnesium 2.2 Troponin I High Sens 2.6 3.1 [place] Pending Current Inpatient Medications Current Inpatient Medications: Current Inpatient Medications Acetaminophen (Acetaminophen 325 Mg Tab) 650 mg PO Q4H PRN PRN Reason: Pain or Fever Stop: 10/27/23 17:20 Last Admin: 09/28/23 07:16 Dose: 650 mg Al Hydrox/Mg Hydrox/Simethicone (Aluminum/Magnesium Susp 30 Ml Udc) 15 ml PO Q4H PRN PRN Reason: Dyspepsia Stop: 10/27/23 17:20 Amlodipine Besylate (Amlodipine Besylate 5 Mg Tab) 2.5 mg PO DAILY [place] Stop: 10/28/23 08:59 Last Admin: 09/29/23 08:15 Dose: 2.5 mg Enoxaparin Sodium (Enoxaparin Inj 40 Mg/0.4 Ml Syr) 40 mg SQ QAM IRISH Stop: 10/28/23 08:59 Last Admin: 09/29/23 08:16 Dose: 40 mg Lorazepam 2 mg/ Syringe 2 mls @ 2 mls/min IV Q6H PRN PRN Reason: seizure Stop: 10/27/23 18:29 Sodium Chloride (Nss) 1,000 mls @ 125 mls/hr IV .Q8H IRIHS Stop: 10/29/23 13:44 Last Admin: 09/30/23 04:09 Dose: 125 mls/hr [place] Carbonate ([place] Carbonate 300 Mg Tab) 300 mg PO HS [place] Stop: 10/29/23 20:59 Last Admin: 09/29/23 20:16 Dose: 300 mg Magnesium Hydroxide (Magnesium Hydroxide Susp 30 Ml Udc) 30 ml PO Q12H PRN PRN Reason: Constipation Stop: 10/27/23 17:20 Olanzapine (Olanzapine Zydis 10 Mg Orally Dis. Tab) 10 mg PO HS [place]ISH Stop: 10/29/23 20:59 Last Admin: 09/29/23 20:16 Dose: 10 mg Ondansetron HCl (Ondansetron Inj 2 Mg/Ml 2 Ml Vial) 4 mg IV Q6H PRN PRN Reason: Nausea Stop: 10/27/23 17:20 Last Admin: 09/28/23 08:18 Dose: 4 mg Polyethylene Glycol (Polyethylene (Miralax) 17 Gm Pack) 17 gm PO DAILY PRN PRN Reason: Constipation Stop: 10/27/23 17:20 Zonisamide (Zonisamide 100 Mg Capsule) 100 mg PO BID [place] Stop: 10/28/23 11:34 Last Admin: 09/29/23 20:15 Dose: 100 mg
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
[2023-09-30 12:24] LABS: 7-Aminoclonaz, Confirm NEGATIVE ng/mL (<25); Hydro-Alp Ur, GC/MS NEGATIVE ng/mL (<25); Hydroxyethylflurazepam, Conf NEGATIVE ng/mL (<50); Hydroxymidazolam Ur, GC/MS 1540 ng/mL (<50); Hydroxytriazolam NEGATIVE ng/mL (<50); Lorazepam, Ur GC/MS 203 ng/mL (<50); Nordiazepam, Confirm NEGATIVE ng/mL (<50); Oxazepam Ur, GC/MS NEGATIVE ng/mL (<50); Temazepam, Confirm NEGATIVE ng/mL (<50)
== END 2023-09-30 13:56 | DRG 101 ==
LOC: ED 15:31 → 1E 17:21 → SUATTDRO 17:21 → 1E 18:34 → 2S 09-28 19:32